=== PATIENT | female | born 1965 | race African-American/Black ===

== ENCOUNTER 2018-01-30 17:35 | Emergency (ER) | payer BC ==
[~2018-01-30] VITALS: Ht 160 cm; Wt 74.8 kg
[~2018-01-30 17:35] MED LIST: BYSTOLIC 5 MG5 M1; COZAAR 25 MG TA25 M1; LASIX 20 MG TAB20 MG; NORCO 5-325 TA1 EACH PO
[2018-01-30] MEDS ORDERED: TOPROL XL100 MG PO (17:44)
[2018-01-30] MEDS ORDERED: DIOVAN 80 MG TA80 M1 PO (17:45)
[2018-01-30] MEDS ORDERED: ROBAXIN 750 MG750 M1 PO (19:05)
[2018-01-30 19:36] VITALS: BP 150/76
== END 2018-01-30 19:36 | disposition home or self-care (01) ==
LOC: M.ERS 17:35
DX: S16.1XXA Strain of muscle, fascia and tendon at neck level, initial encounter (principal); R51 Headache; I10 Essential (primary) hypertension; K21.9 Gastro-esophageal reflux disease without esophagitis; Z98.890 Other specified postprocedural states; V49.40XA Driver injured in collision with unspecified motor vehicles in traffic accident, initial encounter; Y92.410 Unspecified street and highway as the place of occurrence of the external cause; Y93.89 Activity, other specified; Y99.8 Other external cause status

== ENCOUNTER 2018-12-07 11:56 | Emergency (ER) | payer BC ==
[~2018-12-07] VITALS: Ht 160 cm; Wt 74.8 kg
[~2018-12-07 11:56] MED LIST changes: +DIOVAN 80 MG TA80 M1 PO; +ROBAXIN 750 MG750 M1 PO; +TOPROL XL100 MG PO
[2018-12-07] MEDS ORDERED: ACYCLOVIR 800800 MG PO (12:26)
[2018-12-07 12:33] VITALS: BP 130/80
== END 2018-12-07 12:33 | disposition home or self-care (01) ==
LOC: M.ERS 11:56
DX: B02.9 Zoster without complications (principal); I10 Essential (primary) hypertension; K21.9 Gastro-esophageal reflux disease without esophagitis; Z98.890 Other specified postprocedural states